=== PATIENT | male | born 1955 | race Caucasian/White ===

== ENCOUNTER 2022-05-28 17:19 | Inpatient (IN) ==
--- NOTE | 2022-05-28 20:15 | EKG ---
Test Reason : per provider's orders Blood Pressure : */* mmHG Vent. Rate : 95 BPM Atrial Rate : 95 BPM P-R Int : 126 ms QRS Dur : 84 ms QT Int : 354 ms P-R-T Axes : 48 -46 58 degrees QTc Int : 444 ms Normal sinus rhythm Left anterior fascicular block Septal infarct , age undetermined Abnormal ECG No previous ECGs available Confirmed by Devyn Perry ([id number]) on 05/29/2022 11:18:56 AM Referred By: Confirmed By: Devyn Perry
[2022-05-28 20:32] LABS: BASOPHILS % (AUTO) 0.3 % (0.2-1.0); EOSINOPHILS % (AUTO) 0.1 % (0.9-2.9); HEMATOCRIT 31.3 % (42.0-54.0); HEMOGLOBIN 10.2 g/dL (13.5-18.0); LYMPHOCYTES % (AUTO) 5.9 % (21.0-51.0); MEAN CORPUSCULAR HEMOGLOBIN 24.8 pg (27.0-34.0); MEAN CORPUSCULAR HGB CONC 32.6 g/dL (33.0-35.0); MEAN CORPUSCULAR VOLUME 75.9 fL (80.0-100.0); MEAN PLATELET VOLUME 7.8 fL (7.4-11.0); MONOCYTES # (AUTO) 0.9 x10^3/uL (0.3-0.8); MONOCYTES % (AUTO) 5.4 % (0.0-13.0); NEUTROPHILS # (AUTO) 14.7 x10^3/uL (2.2-4.8); NEUTROPHILS % (AUTO) 88.3 % (42.0-75.0); RED BLOOD COUNT 4.12 X10^6/uL (4.7-6.0); RED CELL DISTRIBUTION WIDTH 16.3 % (11.6-16.5); WHITE BLOOD COUNT 16.6 X10^3/uL (3.6-10.0)
[2022-05-28 20:41] LABS: ALANINE AMINOTRANSFERASE 158 Units/L (12-78); ALBUMIN 1.8 g/dL (3.4-5.0); ALKALINE PHOSPHATASE 368 Units/L (46-116); ASPARTATE AMINO TRANSFERASE 96 Units/L (15-37); BLOOD UREA NITROGEN 18 mg/dL (7-18); CARBON DIOXIDE 31.1 mmol/L (21-32); CHLORIDE 98 mmol/L (98-107); COR CA(FOR HYPOALB) 10.8 mg/dL (8.5-10.1); COR NA(FOR HYPERGLY) 139 mmol/L (136-145); CREATININE 0.57 mg/dL (0.70-1.30); SODIUM 136 mmol/L (136-145); eGFR NON BLACK RACES > 60 (>60)
[2022-05-28] MEDS: LR 1,000 ML IV 1,000 ML IV SCH (20:48)
[2022-05-28] MEDS ORDERED: DILAUDID INJ IVP PRN (22:33)
--- NOTE | 2022-05-28 23:02 | DR.H&P ---
H&P History & Physical for Day of: H&P Date: 05/28/22 Chief Complaint Chief Complaint: 66 yo male with history of multiple CVAs , now is aphasic and severely contracted with gangrenous changes of the right leg all below the knee. Recommended for above knee amputation recently and he declined but he has changed his mind. Patietn fed via a PEG tube and has diabetes and hypertension. Allergies Allergies Allergy/AdvReac Type Severity Reaction Status Date / Time MS Morphine [Morphine] Allergy Unknown Verified 05/28/22 20:06 History of Present Illness History of Present Illness: as above . Admitted for amputation of the right leg above knee. Will begin IV antibiotics. Past Medical History Past Medical History: CVA, Diabetes and Hypertension Additional Medical History: Depression, Past Surgical History Surgical History: Ortho Surgery and Other Additional Surgical History: PEG tube placement Social History Does patient currently use any type of tobacco product: No Have you used tobacco products in the last 12 months: No Type of Tobacco Use: None Does any household member use tobacco: Yes Alcohol Use: None Drug Use: None Medications Home Medications: MS Morphine [Morphine] Allergy (Unknown, Verified 05/28/22 20:06) CONTINUE taking the following medications collagenase clostridium histo. 250 unit/gram topical ointment (Santyl) 1 applic topical QDAY 05/28/22 [History] levofloxacin 500 mg tablet 1 tab PO QDAY 05/28/22 [History] oxycodone-acetaminophen 5 mg-325 mg tablet 1 tab PO QID PRN 05/28/22 [History] potassium chloride 20 mEq/15 mL oral liquid 2.5 ml PO BID 05/28/22 [History] rosuvastatin 20 mg tablet 1 tab PO QPM 05/28/22 [History] sertraline 50 mg tablet 1 tab PO QDAY 05/28/22 [History] Labs Result Diagrams: 05/28/22 20:18 05/28/22 20:18 Labs: Laboratory WBC 16.6 X10^3/uL (3.6-10.0) H 05/28/22 20:18 RBC 4.12 X10^6/uL (4.7-6.0) L 05/28/22 20:18 Hgb 10.2 g/dL (13.5-18.0) L 05/28/22 20:18 Hct 31.3 % (42.0-54.0) L 05/28/22 20:18 MCV 75.9 fL (80.0-100.0) L 05/28/22 20:18 MCH 24.8 pg (27.0-34.0) L 05/28/22 20:18 MCHC 32.6 g/dL (33.0-35.0) L 05/28/22 20:18 RDW 16.3 % (11.6-16.5) 05/28/22 20:18 Plt Count 604 X10^3/uL (150.0-450.0) H 05/28/22 20:18 MPV 7.8 fL (7.4-11.0) 05/28/22 20:18 Neut % (Auto) 88.3 % (42.0-75.0) H 05/28/22 20:18 Lymph % (Auto) 5.9 % (21.0-51.0) L 05/28/22 20:18 [place] % (Auto) 5.4 % (0.0-13.0) 05/28/22 20:18 Eos % (Auto) 0.1 % (0.9-2.9) L 05/28/22 20:18 Baso % (Auto) 0.3 % (0.2-1.0) 05/28/22 20:18 Neut # (Auto) 14.7 x10^3/uL (2.2-4.8) H 05/28/22 20:18 Lymph # (Auto) 1.0 X10^3/uL (1.3-2.9) L 05/28/22 20:18 [place] # (Auto) 0.9 x10^3/uL (0.3-0.8) H 05/28/22 20:18 Eos # (Auto) 0.0 x10^3/uL (0.0-0.2) 05/28/22 20:18 Baso # (Auto) 0.0 X10^3/uL (0.0-0.1) 05/28/22 20:18 Absolute Nucleated RBC 0.0 /100WBC 05/28/22 20:18 Sodium 136 mmol/L (136-145) 05/28/22 20:18 Corrected Sodium 139 mmol/L (136-145) 05/28/22 20:18 Potassium 4.5 mmol/L (3.5-5.1) 05/28/22 20:18 Chloride 98 mmol/L (98-107) 05/28/22 20:18 Carbon Dioxide 31.1 mmol/L (21-32) 05/28/22 20:18 BUN 18 mg/dL (7-18) 05/28/22 20:18 Creatinine 0.57 mg/dL (0.70-1.30) L 05/28/22 20:18 Est GFR (MDRD) Af Amer > 60 (>60) 05/28/22 20:18 Est GFR (MDRD) Non-Af > 60 (>60) 05/28/22 20:18 Glucose 232 mg/dL (65-99) H 05/28/22 20:18 Calcium 9.0 mg/dL (8.5-10.1) 05/28/22 20:18 Corrected Calcium 10.8 mg/dL (8.5-10.1) H 05/28/22 20:18 Total Bilirubin 0.30 mg/dL (0.2-1.0) 05/28/22 20:18 AST 96 Units/L (15-37) H 05/28/22 20:18 ALT 158 Units/L (12-78) H 05/28/22 20:18 Alkaline Phosphatase 368 Units/L (46-116) H 05/28/22 20:18 Total Protein 8.0 g/dL (6.4-8.2) 05/28/22 20:18 Albumin 1.8 g/dL (3.4-5.0) L 05/28/22 20:18 Globulin 6.2 g/dL (2.5-4.5) H 05/28/22 20:18 Albumin/Globulin Ratio 0.3 Ratio (1.1-2.1) L 05/28/22 20:18 Review of Systems Constitutional: See HPI Eyes: No Symptoms Reported ENT: No Symptoms Reported Respiratory: No Symptoms Reported Cardiovascular: No Symptoms Reported Gastrointestinal: No Symptoms Reported Genitourinary: No Symptoms Reported Musculoskeletal: See HPI Skin: See HPI Neurological: See HPI Physical Exam Vital Signs: Temperature 98.5 F Pulse Rate 93 Respiratory Rate 26 Blood Pressure 145/68 Oriented: Not Oriented and Unable to test Eyes: Normal Ear: Normal Nose: Other (obvious surgery of the nose ( skin)) Throat: Normal Respiratory: Diminished Throughout and Rhonchi Throughout Cardiovascular: Tachycardia and Other (palpable femoral pulses and absdent distal pulses both legs.) : Normal Auscultation: Bowel Sounds: Normal Palpation: Normal Tenderness: Normal Skin: Other (gangrenous right heel and multiple areas gangrenous changes right leg below knee.) Musculoskeletal: Right (severe contraction) Psychiatric: Depression Mood Description: Flat Affect: Depressed Speech Pattern: Aphasic Assessment/Plan (1) Ischemia of right lower extremity: Status: Acute Plan: IV antibiotics and plan right above knee amputation . (2) History of CVA (cerebrovascular accident): Status: Acute Plan: Continue PEG tube feedings (3) Diabetes: Status: Acute Plan: sliding scale insulin (4) Hypertension: Status: Acute Plan: usual home medications (5) Peripheral vascular disease: Status: Acute Plan: as above
[2022-05-29] MEDS: ZOSYN VIAL 3.375 GRAMS 3.375 G in NS 100 ML IV 100 ML IV SCH ×4 (00:10→21:13)
--- NOTE | 2022-05-29 01:53 | RAD ---
HISTORYShortness of breath relevant Clinical InformationSTUDYCHEST, 1 VIEWCOMPARISONNoneFINDINGSMidline trachea. Interstitial coarsening. No pneumothorax or confluent airspace opacity. Heart size within normal limits for portable technique.IMPRESSIONInterstitial lung changes. No acute cardiopulmonary process.Electronically signed by: Darien العراقي (May 29, 2022 01:52:14)
--- NOTE | 2022-05-29 06:54 | RAD ---
HISTORYPreop right heel ulcerSTUDYChest AP [id number] May 2022FINDINGSHeart size is normal. Jlilian are normal. Lungs are free of acute alveolar infiltrates. Minimal interstitial lung changes are present, stable there is a small focus of subsegmental atelectasis in the retrocardiac area of the left lower lobe. No pleural effusions are identified. Bony thorax is unremarkable.IMPRESSIONNo acute infiltratesElectronically signed by: JESSENIA MONTANEZ (May 29, 2022 06:54:04)
[2022-05-29] MEDS ORDERED: TYLENOL 325 MG TAB PO PRN (08:10)
[2022-05-29] MEDS: LOVENOX INJ 40 MG SYR SC SCH ×2 (08:44→10:28)
[2022-05-29] MEDS: ZOLOFT PO SCH (08:47)
[2022-05-29] MEDS: PERCOCET TAB 5/325 MG PO PRN ×2 (08:47→18:20)
[2022-05-29] MEDS: K-DUR TAB 20 MEQ PO SCH ×2 (08:48→20:02)
[2022-05-29] MEDS: NORVASC TAB 10 MG PO SCH (08:48)
[2022-05-29] MEDS: LR 1,000 ML IV 1,000 ML IV SCH ×3 (10:27→22:37)
[2022-05-29 11:28] LABS: BILIRUBIN,URINE NEGATIVE (NEGATIVE); BLOOD/HEMOGLOBIN,URINE NEGATIVE (NEGATIVE); GLUCOSE, URINE 3+ (NEGATIVE); KETONES,URINE NEGATIVE (NEGATIVE); LEUKOCYTE ESTERASE ,URINE NEGATIVE (NEGATIVE); NITRITES,URINE NEGATIVE (NEGATIVE); PROTEIN,URINE 2+ (NEGATIVE); UROBILINOGEN,URINE 1+ (NORMAL)
[2022-05-29 11:39] LABS: APPEARANCE,URINE CLEAR (CLEAR); BACTERIA,URINE TRACE /HPF (NEGATIVE); COLOR,URINE YELLOW (YELLOW); RBC,URINE 0-2 /HPF (0-3); SQUAMOUS EPITHELIAL CELL,UR RARE /HPF (NEGATIVE)
[2022-05-29 15:43] VITALS: BMI 17.9
[2022-05-29] MEDS: CRESTOR TAB 10 MG PO SCH (20:02)
--- NOTE | 2022-05-29 22:42 | NOTE.SOAP ---
Soap Note Note for Day of Date of Exam: 05/29/22 Subjective Data Subjective Data: HD #1 Patient stable, started tube feedings. Prepared for surgery tomorrow. Objective Data Temperature: 101.8 F Pulse Rate: 80 Respiratory Rate: 25 Blood Pressure: 141/62 O2 Sat by Pulse Oximetry: 96 Objective Data: Febrile this AM probably due to his leg. CXR clear Assessment Assessment: Severely ischemic contracted right leg with cellulitis Plan Plan: right above knee amputation in AM. This patient has high surgical risk. We are trying to make him more comfortable.
[2022-05-30] MEDS: ZOSYN VIAL 3.375 GRAMS 3.375 G in NS 100 ML IV 100 ML IV SCH ×3 (05:15→21:56)
[2022-05-30] MEDS: LR 1,000 ML IV 1,000 ML IV SCH ×3 (06:08→22:20)
[2022-05-30] MEDS: LOVENOX INJ 40 MG SYR SC SCH (10:34)
[2022-05-30] MEDS: ZOLOFT PO SCH (10:35)
[2022-05-30] MEDS: NORVASC TAB 10 MG PO SCH (10:35)
[2022-05-30] MEDS: K-DUR TAB 20 MEQ PO SCH ×2 (10:35→21:56)
[2022-05-30] MEDS ORDERED: DILAUDID INJ IVP ONE (12:05)
[2022-05-30] MEDS ORDERED: TYLENOL SUPP 650 MG PR ONE (12:30)
[2022-05-30] MEDS ORDERED: DIPRIVAN VIAL 20 ML ONE (12:54)
[2022-05-30] MEDS ORDERED: MARCAINE SPINAL ONE (12:54)
[2022-05-30] MEDS ORDERED: VERSED ONE (12:54)
[2022-05-30] MEDS ORDERED: LR 1,000 ML IV 1,000 ML IV ONE (13:16)
[2022-05-30] MEDS ORDERED: NS 100 ML IV 100 ML ONE (13:21)
[2022-05-30] MEDS ORDERED: ANCEF VIAL 1 GRAM ONE (13:21)
[2022-05-30] MEDS ORDERED: KETAMINE HCL ONE (13:55)
[2022-05-30] MEDS ORDERED: EPHEDRINE SULFATE INJ ONE (14:18)
[2022-05-30] MEDS ORDERED: BENADRYL INJ 50 MG VIAL IVP PRN (15:04)
[2022-05-30] MEDS ORDERED: REGLAN INJ 10 MG VIAL IVP PRN (15:04)
[2022-05-30] MEDS ORDERED: DILAUDID INJ IVP PRN (15:04)
[2022-05-30] MEDS ORDERED: ZOFRAN INJ 4 MG VIAL IVP PRN (15:04)
[2022-05-30] MEDS ORDERED: BARHEMSYS INJ IVP PRN (15:04)
[2022-05-30] MEDS ORDERED: NS 500 ML IV 500 ML IV ONE (15:19)
--- NOTE | 2022-05-30 16:40 | OR.IMMED ---
IMMEDIATE POST-OP NOTE Immediate Post-Op Note Pre-Op Diagnosis: gangrenous, infected right leg Post-Op Diagnosis: same Procedure: right above knee amputation Description of Procedure: see operative summary Surgeon/Rental Agent: Jaquelin Findings: as above Specimens Removed: right leg above kn ee Estimated Blood Loss: 25 cc Complications: none Progress Notes: To ICU, resume diet , pain control and IV antibiotics
[2022-05-30] MEDS: PERCOCET TAB 5/325 MG PO PRN (18:29)
--- NOTE | 2022-05-30 20:36 | DR.OPNOTE ---
OP NOTE Pre-Op Diagnosis: Severe ischemia rightn leg, open wounds, cellulitis, CVA non- ambulatory Post-Op Diagnosis: same Procedure Date Date Of Procedure: 05/30/22 Procedure: PROCEDURE: RIGHT ABOVE KNEE AMPUTATION NARRATIVE: The patient was taken to the operative suite and a spinal anesthetic placed . The entire right leg was prepped and draped in sterile fashion. Time out for the procedure obtained . Fish mouth incision was made one hands breadth above the superior edge of the patella with a 15 knife blade extending through the subcuticular space tissue and muscles of anterior thigh with electrocautery. Dissection carried out in the medial compartment and the superficial femoral artery and superficial femoral vein divided between clamps and tied with 2-0 silk suture ligatures . The periosteum of the femur elevated high as possible and the femur divided with an oscillating saw. Amputation knife used to complete the amputation. Specimen passed from the table .All bleeding vessels clamped and tied with 2-0 silk suture ligatures . The wound irrigated and other hemostasis obtained with electrocautery. The two flaps were approximated , closing muscle layers with interrupted 0 Vicryl sutures and the skin closed with skin latanya. Dressing applied . Taken to the PACU in good condition. Type of Anesthesia: Spinal Anesthetic Findings: as above Specimen/Pathology: right leg above knee Type of Fluids Used:: Lactated Ringers Total Amount of Fluid Infused:: 800 cc Urine output: 500 cc EBL: 25 cc Complications:: none Needle/Sponge Count:: correct Disposition/Condition: Pt. tolerated procedure without difficulty. Taken to PACU in stable condition.
[2022-05-30] MEDS: CRESTOR TAB 10 MG PO SCH (21:56)
[2022-05-31 05:17] LABS: BASOPHILS % (AUTO) 0.2 % (0.2-1.0); HEMATOCRIT 25.2 % (42.0-54.0); LYMPHOCYTES # (AUTO) 1.3 X10^3/uL (1.3-2.9); LYMPHOCYTES % (AUTO) 9.6 % (21.0-51.0); MEAN CORPUSCULAR HEMOGLOBIN 24.1 pg (27.0-34.0); MEAN CORPUSCULAR HGB CONC 32.1 g/dL (33.0-35.0); MEAN CORPUSCULAR VOLUME 75.1 fL (80.0-100.0); MEAN PLATELET VOLUME 7.6 fL (7.4-11.0); MONOCYTES # (AUTO) 0.8 x10^3/uL (0.3-0.8); MONOCYTES % (AUTO) 5.8 % (0.0-13.0); NEUTROPHILS # (AUTO) 11.8 x10^3/uL (2.2-4.8); NEUTROPHILS % (AUTO) 84.4 % (42.0-75.0); RED BLOOD COUNT 3.35 X10^6/uL (4.7-6.0); RED CELL DISTRIBUTION WIDTH 16.3 % (11.6-16.5)
[2022-05-31 05:21] LABS: BLOOD UREA NITROGEN 10 mg/dL (7-18); CALCIUM 8.6 mg/dL (8.5-10.1); CARBON DIOXIDE 28.3 mmol/L (21-32); CHLORIDE 102 mmol/L (98-107); COR NA(FOR HYPERGLY) 144 mmol/L (136-145); CREATININE 0.46 mg/dL (0.70-1.30); SODIUM 140 mmol/L (136-145); eGFR NON BLACK RACES > 60 (>60)
[2022-05-31] MEDS: ZOSYN VIAL 3.375 GRAMS 3.375 G in NS 100 ML IV 100 ML IV SCH ×3 (05:22→22:08)
[2022-05-31 05:25] LABS: HEMOGLOBIN 8.1 g/dL (13.5-18.0)
[2022-05-31] MEDS: ZOLOFT PO SCH (09:34)
[2022-05-31] MEDS: LR 1,000 ML IV 1,000 ML IV SCH ×2 (09:34→14:53)
[2022-05-31] MEDS: K-DUR TAB 20 MEQ PO SCH ×2 (09:35→22:07)
[2022-05-31] MEDS: NORVASC TAB 10 MG PO SCH (09:36)
[2022-05-31] MEDS: PERCOCET TAB 5/325 MG PO PRN ×3 (09:36→22:30)
[2022-05-31] MEDS: MAGNESIUM SULFATE 1 GRAM/100 mL PREMIX 1 G/100 ML BAG IV SCH ×2 (10:40→11:40)
[2022-05-31] MEDS ORDERED: POTASSIUM CHLORIDE IV NR ×2 (11:00)
[2022-05-31] MEDS ORDERED: NS IV NR ×2 (11:00)
[2022-05-31] MEDS: SANTYL EXT SCH (11:06)
[2022-05-31] MEDS: NovoLIN R (or HumuLIN R) SC PRN ×3 (11:14→22:22)
[2022-05-31] MEDS: CRESTOR TAB 10 MG PO SCH (22:07)
[2022-06-01] MEDS: LR 1,000 ML IV 1,000 ML IV SCH ×3 (03:32→21:26)
[2022-06-01] MEDS: ZOSYN VIAL 3.375 GRAMS 3.375 G in NS 100 ML IV 100 ML IV SCH ×3 (05:44→21:17)
[2022-06-01] MEDS: PERCOCET TAB 5/325 MG PO PRN ×2 (08:25→17:23)
[2022-06-01] MEDS: SANTYL EXT SCH (08:25)
[2022-06-01] MEDS: NORVASC TAB 10 MG PO SCH (08:26)
[2022-06-01] MEDS: ZOLOFT PO SCH (08:26)
[2022-06-01] MEDS: K-DUR TAB 20 MEQ PO SCH ×2 (08:26→21:17)
[2022-06-01] MEDS: CRESTOR TAB 10 MG PO SCH (21:17)
[2022-06-01] MEDS: NovoLIN R (or HumuLIN R) SC PRN (21:46)
[2022-06-02] MEDS: PERCOCET TAB 5/325 MG PO PRN ×3 (01:05→21:20)
--- NOTE | 2022-06-02 01:28 | NOTE.SOAP ---
Soap Note Note for Day of Date of Exam: 06/01/22 Subjective Data Subjective Data: POD #2 after right above knee amputation Objective Data Temperature: 98.8 F Pulse Rate: 73 Respiratory Rate: 19 Blood Pressure: 120/57 O2 Sat by Pulse Oximetry: 95 Objective Data: Resting comfortably. Dressing intact right AKA stump and no bleeding. Assessment Assessment: ischemic right leg s/p right above knee amputation. Plan Plan: Labs in AM. Will plan discharge soon
[2022-06-02] MEDS: LR 1,000 ML IV 1,000 ML IV SCH ×2 (05:21→18:17)
[2022-06-02] MEDS: ZOSYN VIAL 3.375 GRAMS 3.375 G in NS 100 ML IV 100 ML IV SCH ×3 (05:21→21:21)
[2022-06-02] MEDS: NovoLIN R (or HumuLIN R) SC PRN (05:54)
[2022-06-02] MEDS: K-DUR TAB 20 MEQ PO SCH ×2 (10:06→21:20)
[2022-06-02] MEDS: NORVASC TAB 10 MG PO SCH (10:07)
[2022-06-02] MEDS: ZOLOFT PO SCH (10:07)
--- NOTE | 2022-06-02 14:53 | NOTE.SOAP ---
Soap Note Note for Day of Date of Exam: 06/02/22 Subjective Data Subjective Data: POD # 3 after right above knee amputation. Doing well. tolerating tube feedings and IV antibiotics. Objective Data Temperature: 97.6 F Pulse Rate: 72 Respiratory Rate: 20 Blood Pressure: 130/67 O2 Sat by Pulse Oximetry: 96 Objective Data: Right leg dressing without drainage. Assessment Assessment: s/p right above knee amputation. Plan Plan: Awaiting hospice consult . Ready for discharge.
[2022-06-02] MEDS: CRESTOR TAB 10 MG PO SCH (21:19)
[2022-06-03 05:16] LABS: BLOOD UREA NITROGEN 8 mg/dL (7-18); CALCIUM 8.6 mg/dL (8.5-10.1); CARBON DIOXIDE 30.7 mmol/L (21-32); CHLORIDE 99 mmol/L (98-107); COR NA(FOR HYPERGLY) 138 mmol/L (136-145); SODIUM 137 mmol/L (136-145); eGFR NON BLACK RACES > 60 (>60)
[2022-06-03 05:25] LABS: BASOPHILS # (AUTO) 0.1 X10^3/uL (0.0-0.1); BASOPHILS % (AUTO) 0.6 % (0.2-1.0); EOSINOPHILS # (AUTO) 0.3 x10^3/uL (0.0-0.2); EOSINOPHILS % (AUTO) 2.2 % (0.9-2.9); HEMATOCRIT 26.2 % (42.0-54.0); HEMOGLOBIN 8.5 g/dL (13.5-18.0); LYMPHOCYTES # (AUTO) 2.5 X10^3/uL (1.3-2.9); LYMPHOCYTES % (AUTO) 21.6 % (21.0-51.0); MEAN CORPUSCULAR HEMOGLOBIN 24.1 pg (27.0-34.0); MEAN CORPUSCULAR HGB CONC 32.4 g/dL (33.0-35.0); MEAN CORPUSCULAR VOLUME 74.5 fL (80.0-100.0); MEAN PLATELET VOLUME 7.7 fL (7.4-11.0); MONOCYTES # (AUTO) 0.7 x10^3/uL (0.3-0.8); NEUTROPHILS % (AUTO) 69.6 % (42.0-75.0); RED BLOOD COUNT 3.52 X10^6/uL (4.7-6.0); RED CELL DISTRIBUTION WIDTH 16.3 % (11.6-16.5); WHITE BLOOD COUNT 11.5 X10^3/uL (3.6-10.0)
[2022-06-03] MEDS: ZOSYN VIAL 3.375 GRAMS 3.375 G in NS 100 ML IV 100 ML IV SCH (05:36)
[2022-06-03 05:40] LABS: HYPOCHROMASIA 1+; MICROCYTOSIS SLIGHT; PLATELET MORPHOLOGY COMMENT NORMAL (NORMAL)
[2022-06-03] MEDS: LR 1,000 ML IV 1,000 ML IV SCH (06:12)
[2022-06-03] MEDS: NORVASC TAB 10 MG PO SCH (08:44)
[2022-06-03] MEDS: ZOLOFT PO SCH (08:44)
[2022-06-03] MEDS: K-DUR TAB 20 MEQ PO SCH (08:44)
[2022-06-03 14:26] VITALS: BP 139/65
--- NOTE | 2022-06-05 11:31 | W.DIS.FURT ---
Summary of Discharge Discharge Summary of Date Date of Exam: 06/03/22 Admission Date Date of Admission: 05/29/22 Admission Diagnosis Hospital Course: 66 year old male with significant history of peripheral vascular disease and multiple strokes now completely aphasic but is alert with severe wounds of the right leg which to this point he had refused amputation and they continue to worsen and he is non ambulatory with contractions of both lowre extremities. He and his family changed their minds and he was admitted 05/29/2022 and had right above knee amputation on 05/30/2022. He has remained stable. He was treated empirically wt IV antibiotics. He will be discharged home today with home health and will follow up with me in the office in one week. Vital Signs: Vital Signs (72 hours) 06/02/22 14:52 06/02/22 01:27 05/31/22 14:54 Temperature 97.6 F 98.8 F Pulse Rate 72 73 Respiratory Rate 20 19 24 Blood Pressure 130/67 120/57 O2 Sat by Pulse Oximetry 96 95 Oxygen Delivery Method Oxygen Flow Rate FIO2% 05/31/22 12:00 05/31/22 12:00 05/31/22 13:00 Temperature 98.9 F Pulse Rate 72 Respiratory Rate 19 Blood Pressure 124/59 127/60 O2 Sat by Pulse Oximetry 97 Oxygen Delivery Method Oxygen Flow Rate FIO2% 05/31/22 13:00 05/31/22 14:00 05/31/22 14:00 Temperature Pulse Rate 74 76 Respiratory Rate 20 21 Blood Pressure 112/57 O2 Sat by Pulse Oximetry 97 95 Oxygen Delivery Method Oxygen Flow Rate FIO2% 05/31/22 15:00 05/31/22 15:00 05/31/22 16:00 Temperature Pulse Rate 73 Respiratory Rate 18 Blood Pressure 109/53 120/57 O2 Sat by Pulse Oximetry 100 Oxygen Delivery Method Oxygen Flow Rate FIO2% 05/31/22 16:00 05/31/22 17:00 05/31/22 17:00 Temperature 97.7 F Pulse Rate 74 73 Respiratory Rate 18 18 Blood Pressure 105/54 O2 Sat by Pulse Oximetry 100 98 Oxygen Delivery Method Oxygen Flow Rate FIO2% 05/31/22 15:54 05/31/22 18:00 05/31/22 18:00 Temperature Pulse Rate 69 Respiratory Rate 17 18 Blood Pressure 109/58 O2 Sat by Pulse Oximetry 98 Oxygen Delivery Method Oxygen Flow Rate FIO2% 05/31/22 20:00 05/31/22 22:30 05/31/22 19:00 Temperature Pulse Rate Respiratory Rate 17 Blood Pressure O2 Sat by Pulse Oximetry Oxygen Delivery Method Nasal Cannula Room Air Oxygen Flow Rate 2 FIO2% 28 05/31/22 19:00 05/31/22 20:00 05/31/22 21:00 Temperature 99.5 F Pulse Rate 71 75 71 Respiratory Rate 17 21 21 Blood Pressure 113/56 105/50 104/53 O2 Sat by Pulse Oximetry 98 97 98 Oxygen Delivery Method Nasal Cannula Nasal Cannula Nasal Cannula Oxygen Flow Rate 2 2 2 FIO2% 05/31/22 22:00 05/31/22 23:00 06/01/22 00:00 Temperature 99.1 F Pulse Rate 78 76 74 Respiratory Rate 22 22 20 Blood Pressure 107/57 110/54 98/51 O2 Sat by Pulse Oximetry 97 97 98 Oxygen Delivery Method Nasal Cannula Nasal Cannula Nasal Cannula Oxygen Flow Rate 2 2 2 FIO2% 06/01/22 01:00 06/01/22 02:00 06/01/22 03:00 Temperature Pulse Rate 71 70 62 Respiratory Rate 21 15 16 Blood Pressure 99/52 105/51 95/53 O2 Sat by Pulse Oximetry 98 100 99 Oxygen Delivery Method Nasal Cannula Nasal Cannula Nasal Cannula Oxygen Flow Rate 2 2 2 FIO2% 06/01/22 04:00 06/01/22 05:00 06/01/22 06:00 Temperature 99.3 F Pulse Rate 64 66 55 L Respiratory Rate 15 16 14 Blood Pressure 100/52 113/53 114/57 O2 Sat by Pulse Oximetry 100 100 100 Oxygen Delivery Method Nasal Cannula Nasal Cannula Nasal Cannula Oxygen Flow Rate 2 2 2 FIO2% 06/01/22 07:00 06/01/22 08:25 06/01/22 07:00 Temperature Pulse Rate 61 Respiratory Rate 15 19 Blood Pressure 111/54 O2 Sat by Pulse Oximetry 99 Oxygen Delivery Method Nasal Cannula Room Air Oxygen Flow Rate 2 FIO2% 06/01/22 08:00 06/01/22 09:00 06/01/22 09:24 Temperature 98.4 F Pulse Rate 62 60 Respiratory Rate 15 15 15 Blood Pressure 109/55 111/55 O2 Sat by Pulse Oximetry 100 100 Oxygen Delivery Method Nasal Cannula Nasal Cannula Oxygen Flow Rate 2 2 FIO2% 06/01/22 10:00 06/01/22 11:00 06/01/22 12:00 Temperature 98.1 F Pulse Rate 70 72 67 Respiratory Rate 15 15 21 Blood Pressure 117/54 125/60 124/59 O2 Sat by Pulse Oximetry 97 97 95 Oxygen Delivery Method Nasal Cannula Nasal Cannula Nasal Cannula Oxygen Flow Rate 2 2 2 FIO2% 06/01/22 13:00 06/01/22 14:00 06/01/22 15:00 Temperature Pulse Rate 71 71 77 Respiratory Rate 16 17 20 Blood Pressure 133/62 123/58 122/60 O2 Sat by Pulse Oximetry 97 98 95 Oxygen Delivery Method Nasal Cannula Nasal Cannula Nasal Cannula Oxygen Flow Rate 2 2 2 FIO2% 06/01/22 17:23 06/01/22 16:00 06/01/22 17:00 Temperature 98.5 F Pulse Rate 67 68 Respiratory Rate 21 19 20 Blood Pressure 122/59 134/60 O2 Sat by Pulse Oximetry 96 98 Oxygen Delivery Method Nasal Cannula Nasal Cannula Oxygen Flow Rate 2 2 FIO2% 06/01/22 18:00 06/01/22 18:23 06/01/22 19:00 Temperature Pulse Rate 74 71 Respiratory Rate 17 19 17 Blood Pressure 127/60 117/59 O2 Sat by Pulse Oximetry 96 96 Oxygen Delivery Method Nasal Cannula Nasal Cannula Oxygen Flow Rate 2 2 FIO2% 06/01/22 19:00 06/01/22 20:00 06/01/22 21:00 Temperature 98.8 F Pulse Rate 69 67 Respiratory Rate 14 17 Blood Pressure 122/58 121/57 O2 Sat by Pulse Oximetry 98 95 Oxygen Delivery Method Nasal Cannula Nasal Cannula Nasal Cannula Oxygen Flow Rate 2 2 FIO2% 06/01/22 22:00 06/01/22 23:00 06/02/22 00:00 Temperature 97.9 F Pulse Rate 69 73 72 Respiratory Rate 19 19 20 Blood Pressure 142/60 120/57 131/52 O2 Sat by Pulse Oximetry 96 95 98 Oxygen Delivery Method Nasal Cannula Nasal Cannula Nasal Cannula Oxygen Flow Rate 2 2 2 FIO2% 06/02/22 01:00 06/02/22 02:00 06/02/22 03:00 Temperature Pulse Rate 72 20 L 69 Respiratory Rate 20 73 H 19 Blood Pressure 124/60 120/57 114/56 O2 Sat by Pulse Oximetry 96 94 L 95 Oxygen Delivery Method Nasal Cannula Nasal Cannula Nasal Cannula Oxygen Flow Rate 2 2 2 FIO2% 06/02/22 04:00 06/02/22 05:00 06/02/22 06:00 Temperature 97.6 F Pulse Rate 61 73 74 Respiratory Rate 15 16 17 Blood Pressure 107/56 125/61 133/62 O2 Sat by Pulse Oximetry 98 96 98 Oxygen Delivery Method Nasal Cannula Nasal Cannula Oxygen Flow Rate 2 2 FIO2% 06/02/22 01:05 06/02/22 02:05 06/02/22 08:41 Temperature Pulse Rate Respiratory Rate 19 19 Blood Pressure O2 Sat by Pulse Oximetry Oxygen Delivery Method Nasal Cannula Oxygen Flow Rate 2 FIO2% 28 06/02/22 07:00 06/01/22 11:00 06/01/22 12:00 Temperature Pulse Rate 70 Respiratory Rate 16 Blood Pressure 124/59 O2 Sat by Pulse Oximetry 97 Oxygen Delivery Method Nasal Cannula Oxygen Flow Rate FIO2% 06/01/22 12:00 06/01/22 13:00 06/01/22 13:00 Temperature Pulse Rate 67 72 Respiratory Rate 15 19 Blood Pressure 133/62 O2 Sat by Pulse Oximetry 96 97 Oxygen Delivery Method Oxygen Flow Rate FIO2% 06/01/22 14:00 06/01/22 14:00 06/01/22 15:00 Temperature Pulse Rate 71 Respiratory Rate 17 Blood Pressure 123/58 122/60 O2 Sat by Pulse Oximetry 98 Oxygen Delivery Method Oxygen Flow Rate FIO2% 06/01/22 15:00 06/01/22 16:00 06/01/22 16:00 Temperature Pulse Rate 74 67 Respiratory Rate 20 19 Blood Pressure 122/59 O2 Sat by Pulse Oximetry 95 96 Oxygen Delivery Method Oxygen Flow Rate FIO2% 06/01/22 17:00 06/01/22 17:13 06/01/22 17:13 Temperature Pulse Rate 71 68 Respiratory Rate 21 20 Blood Pressure 134/60 O2 Sat by Pulse Oximetry 97 98 Oxygen Delivery Method Oxygen Flow Rate FIO2% 06/01/22 18:00 06/01/22 18:00 06/01/22 19:00 Temperature Pulse Rate 74 Respiratory Rate 17 Blood Pressure 127/60 117/59 O2 Sat by Pulse Oximetry 96 Oxygen Delivery Method Oxygen Flow Rate FIO2% 06/01/22 19:00 06/01/22 20:00 06/01/22 20:00 Temperature Pulse Rate 71 69 Respiratory Rate 17 15 Blood Pressure 122/58 O2 Sat by Pulse Oximetry 96 98 Oxygen Delivery Method Oxygen Flow Rate FIO2% 06/01/22 21:00 06/01/22 21:00 06/01/22 22:00 Temperature Pulse Rate 67 68 Respiratory Rate 18 21 Blood Pressure 121/57 O2 Sat by Pulse Oximetry 95 97 Oxygen Delivery Method Oxygen Flow Rate FIO2% 06/01/22 22:01 06/01/22 22:01 06/01/22 23:00 Temperature Pulse Rate 69 Respiratory Rate 19 Blood Pressure 142/60 120/57 O2 Sat by Pulse Oximetry 96 Oxygen Delivery Method Oxygen Flow Rate FIO2% 06/01/22 23:00 06/02/22 00:00 06/02/22 00:00 Temperature Pulse Rate 72 72 Respiratory Rate 19 20 Blood Pressure 131/62 O2 Sat by Pulse Oximetry 95 98 Oxygen Delivery Method Oxygen Flow Rate FIO2% 06/02/22 01:00 06/02/22 01:00 06/02/22 02:00 Temperature Pulse Rate 72 Respiratory Rate 20 Blood Pressure 124/60 120/57 O2 Sat by Pulse Oximetry 96 Oxygen Delivery Method Oxygen Flow Rate FIO2% 06/02/22 02:00 06/02/22 03:00 06/02/22 03:00 Temperature Pulse Rate 73 69 Respiratory Rate 20 19 Blood Pressure 114/56 O2 Sat by Pulse Oximetry 94 L 95 Oxygen Delivery Method Oxygen Flow Rate FIO2% 06/02/22 04:00 06/02/22 04:00 06/02/22 05:00 Temperature Pulse Rate 66 68 Respiratory Rate 17 17 Blood Pressure 107/56 O2 Sat by Pulse Oximetry 97 96 Oxygen Delivery Method Oxygen Flow Rate FIO2% 06/02/22 05:01 06/02/22 05:01 06/02/22 06:00 Temperature Pulse Rate 69 Respiratory Rate 24 Blood Pressure 125/61 133/62 O2 Sat by Pulse Oximetry 98 Oxygen Delivery Method Oxygen Flow Rate FIO2% 06/02/22 06:00 06/02/22 07:00 06/02/22 07:00 Temperature Pulse Rate 74 71 Respiratory Rate 19 20 Blood Pressure 121/56 O2 Sat by Pulse Oximetry 97 97 Oxygen Delivery Method Oxygen Flow Rate FIO2% 06/02/22 08:00 06/02/22 08:00 06/02/22 09:00 Temperature Pulse Rate 67 Respiratory Rate 17 Blood Pressure 114/56 131/58 O2 Sat by Pulse Oximetry 99 Oxygen Delivery Method Oxygen Flow Rate FIO2% 06/02/22 09:00 06/02/22 10:00 06/02/22 10:00 Temperature Pulse Rate 66 68 Respiratory Rate 18 20 Blood Pressure 126/60 O2 Sat by Pulse Oximetry 99 100 Oxygen Delivery Method Oxygen Flow Rate FIO2% 06/02/22 12:33 06/02/22 11:00 06/02/22 11:01 Temperature Pulse Rate 76 Respiratory Rate 21 Blood Pressure 130/67 154/63 O2 Sat by Pulse Oximetry 96 Oxygen Delivery Method Oxygen Flow Rate FIO2% 06/02/22 11:01 06/02/22 12:00 06/02/22 12:00 Temperature Pulse Rate 74 72 Respiratory Rate 19 20 Blood Pressure 132/63 O2 Sat by Pulse Oximetry 96 96 Oxygen Delivery Method Oxygen Flow Rate FIO2% 06/02/22 13:32 06/02/22 13:00 06/02/22 13:00 Temperature Pulse Rate 74 Respiratory Rate 19 22 Blood Pressure 133/60 O2 Sat by Pulse Oximetry 99 Oxygen Delivery Method Oxygen Flow Rate FIO2% 06/02/22 14:00 06/02/22 14:00 06/02/22 15:00 Temperature Pulse Rate 70 Respiratory Rate 17 Blood Pressure 127/60 120/57 O2 Sat by Pulse Oximetry 98 Oxygen Delivery Method Oxygen Flow Rate FIO2% 06/02/22 15:00 06/02/22 16:00 06/02/22 16:00 Temperature Pulse Rate 67 69 Respiratory Rate 18 21 Blood Pressure 136/63 O2 Sat by Pulse Oximetry 98 100 Oxygen Delivery Method Oxygen Flow Rate FIO2% 06/02/22 14:32 06/02/22 17:00 06/02/22 17:00 Temperature Pulse Rate 69 Respiratory Rate 19 18 Blood Pressure 130/60 O2 Sat by Pulse Oximetry 97 Oxygen Delivery Method Oxygen Flow Rate FIO2% 06/02/22 18:00 06/02/22 18:00 06/02/22 19:00 Temperature Pulse Rate 72 72 Respiratory Rate 20 20 Blood Pressure 131/62 131/62 O2 Sat by Pulse Oximetry 99 99 Oxygen Delivery Method Nasal Cannula Oxygen Flow Rate 2 FIO2% 06/02/22 19:00 06/02/22 20:00 06/02/22 21:20 Temperature 98.3 F Pulse Rate 72 Respiratory Rate 21 19 Blood Pressure 135/63 O2 Sat by Pulse Oximetry 100 Oxygen Delivery Method Nasal Cannula Nasal Cannula Oxygen Flow Rate 2 2 FIO2% 06/02/22 22:20 06/02/22 21:00 06/02/22 22:00 Temperature Pulse Rate 72 73 Respiratory Rate 20 21 21 Blood Pressure 141/65 128/60 O2 Sat by Pulse Oximetry 97 96 Oxygen Delivery Method Nasal Cannula Nasal Cannula Oxygen Flow Rate 2 2 FIO2% 06/02/22 23:00 06/03/22 00:00 06/02/22 21:09 Temperature 98.8 F Pulse Rate 74 71 Respiratory Rate 17 18 Blood Pressure 116/59 118/59 O2 Sat by Pulse Oximetry 98 100 Oxygen Delivery Method Nasal Cannula Nasal Cannula Nasal Cannula Oxygen Flow Rate 2 2 2 FIO2% 28 06/03/22 01:00 06/03/22 02:00 06/03/22 03:00 Temperature Pulse Rate 67 74 103 H Respiratory Rate 17 18 22 Blood Pressure 110/53 104/54 125/68 O2 Sat by Pulse Oximetry 99 100 100 Oxygen Delivery Method Nasal Cannula Nasal Cannula Nasal Cannula Oxygen Flow Rate 2 2 2 FIO2% 06/03/22 04:00 06/03/22 05:00 06/03/22 06:00 Temperature 98.4 F Pulse Rate 68 73 76 Respiratory Rate 17 18 16 Blood Pressure 133/61 149/63 151/74 O2 Sat by Pulse Oximetry 100 99 100 Oxygen Delivery Method Nasal Cannula Nasal Cannula Nasal Cannula Oxygen Flow Rate 2 2 2 FIO2% 06/03/22 07:00 06/03/22 07:18 06/02/22 19:00 Temperature Pulse Rate 76 Respiratory Rate Blood Pressure 142/66 O2 Sat by Pulse Oximetry Oxygen Delivery Method Nasal Cannula Oxygen Flow Rate 2 FIO2% 06/02/22 19:00 06/02/22 20:00 06/02/22 20:00 Temperature Pulse Rate 74 72 Respiratory Rate 19 21 Blood Pressure 135/63 O2 Sat by Pulse Oximetry 100 97 Oxygen Delivery Method Oxygen Flow Rate FIO2% 06/02/22 21:00 06/02/22 21:00 06/02/22 22:00 Temperature Pulse Rate 74 Respiratory Rate 22 Blood Pressure 141/65 128/60 O2 Sat by Pulse Oximetry 96 Oxygen Delivery Method Oxygen Flow Rate FIO2% 06/02/22 22:00 06/02/22 23:00 06/02/22 23:00 Temperature Pulse Rate 73 77 Respiratory Rate 21 21 Blood Pressure 116/59 O2 Sat by Pulse Oximetry 96 98 Oxygen Delivery Method Oxygen Flow Rate FIO2% 06/03/22 00:00 06/03/22 00:00 06/03/22 01:00 Temperature Pulse Rate 73 Respiratory Rate 16 Blood Pressure 118/59 110/53 O2 Sat by Pulse Oximetry 99 Oxygen Delivery Method Oxygen Flow Rate FIO2% 06/03/22 01:00 06/03/22 02:00 06/03/22 02:00 Temperature Pulse Rate 70 62 Respiratory Rate 21 23 Blood Pressure 104/54 O2 Sat by Pulse Oximetry 96 100 Oxygen Delivery Method Oxygen Flow Rate FIO2% 06/03/22 03:00 06/03/22 03:01 06/03/22 03:01 Temperature Pulse Rate 65 65 Respiratory Rate 16 17 Blood Pressure 127/61 O2 Sat by Pulse Oximetry 100 100 Oxygen Delivery Method Oxygen Flow Rate FIO2% 06/03/22 04:00 06/03/22 04:00 06/03/22 05:00 Temperature Pulse Rate 66 Respiratory Rate 17 Blood Pressure 133/61 149/63 O2 Sat by Pulse Oximetry 100 Oxygen Delivery Method Oxygen Flow Rate FIO2% 06/03/22 05:00 06/03/22 06:00 06/03/22 06:00 Temperature Pulse Rate 67 79 Respiratory Rate 17 23 Blood Pressure 151/74 O2 Sat by Pulse Oximetry 100 100 Oxygen Delivery Method Oxygen Flow Rate FIO2% 06/03/22 07:00 06/03/22 07:00 06/03/22 08:40 Temperature 98.6 F Pulse Rate 78 Respiratory Rate 20 Blood Pressure 149/67 O2 Sat by Pulse Oximetry 99 Oxygen Delivery Method Nasal Cannula Oxygen Flow Rate 2 FIO2% 28 06/03/22 08:00 06/03/22 08:00 06/03/22 09:00 Temperature Pulse Rate 73 71 Respiratory Rate 21 18 Blood Pressure 114/56 O2 Sat by Pulse Oximetry 96 100 Oxygen Delivery Method Oxygen Flow Rate FIO2% 06/03/22 09:01 06/03/22 09:01 06/03/22 10:00 Temperature Pulse Rate 73 Respiratory Rate 18 Blood Pressure 138/65 125/61 O2 Sat by Pulse Oximetry 100 Oxygen Delivery Method Oxygen Flow Rate FIO2% 06/03/22 10:00 Temperature Pulse Rate 67 Respiratory Rate 20 Blood Pressure O2 Sat by Pulse Oximetry 100 Oxygen Delivery Method Oxygen Flow Rate FIO2% Labs: Laboratory Last Values WBC 11.5 X10^3/uL (3.6-10.0) H 06/03/22 04:25 RBC 3.52 X10^6/uL (4.7-6.0) L 06/03/22 04:25 Hgb 8.5 g/dL (13.5-18.0) L 06/03/22 04:25 Hct 26.2 % (42.0-54.0) L 06/03/22 04:25 MCV 74.5 fL (80.0-100.0) L 06/03/22 04:25 MCH 24.1 pg (27.0-34.0) L 06/03/22 04:25 MCHC 32.4 g/dL (33.0-35.0) L 06/03/22 04:25 RDW 16.3 % (11.6-16.5) 06/03/22 04:25 Plt Count 754 X10^3/uL (150.0-450.0) H 06/03/22 04:25 Plt Count Comment Increased (ADEQUATE) 06/03/22 04:25 MPV 7.7 fL (7.4-11.0) 06/03/22 04:25 Neut % (Auto) 69.6 % (42.0-75.0) 06/03/22 04:25 Lymph % (Auto) 21.6 % (21.0-51.0) 06/03/22 04:25 Todd % (Auto) 6.0 % (0.0-13.0) 06/03/22 04:25 Eos % (Auto) 2.2 % (0.9-2.9) 06/03/22 04:25 Baso % (Auto) 0.6 % (0.2-1.0) 06/03/22 04:25 Neut # (Auto) 8.0 x10^3/uL (2.2-4.8) H 06/03/22 04:25 Lymph # (Auto) 2.5 X10^3/uL (1.3-2.9) 06/03/22 04:25 Todd # (Auto) 0.7 x10^3/uL (0.3-0.8) 06/03/22 04:25 Eos # (Auto) 0.3 x10^3/uL (0.0-0.2) H 06/03/22 04:25 Baso # (Auto) 0.1 X10^3/uL (0.0-0.1) 06/03/22 04:25 Absolute Nucleated RBC 0.0 /100WBC 06/03/22 04:25 Plt Morphology Comment Normal (NORMAL) 06/03/22 04:25 RBC Morphology Abnormal (NORMAL) 06/03/22 04:25 Hypochromasia 1+ A 06/03/22 04:25 Microcytosis Slight A 06/03/22 04:25 Sodium 137 mmol/L (136-145) 06/03/22 04:25 Corrected Sodium 138 mmol/L (136-145) 06/03/22 04:25 Potassium 3.6 mmol/L (3.5-5.1) 06/03/22 04:25 Chloride 99 mmol/L (98-107) 06/03/22 04:25 Carbon Dioxide 30.7 mmol/L (21-32) 06/03/22 04:25 BUN 8 mg/dL (7-18) 06/03/22 04:25 Creatinine 0.40 mg/dL (0.70-1.30) L 06/03/22 04:25 Est GFR (MDRD) Af Amer > 60 (>60) 06/03/22 04:25 Est GFR (MDRD) Non-Af > 60 (>60) 06/03/22 04:25 Glucose 160 mg/dL (65-99) H 06/03/22 04:25 POC Glucose (mg/dL) 161 mg/dL (65-99) H 06/03/22 05:01 Calcium 8.6 mg/dL (8.5-10.1) 06/03/22 04:25 Corrected Calcium 10.8 mg/dL (8.5-10.1) H 05/28/22 20:18 Magnesium 1.8 mg/dL (2.0-2.9) L 05/31/22 04:30 Total Bilirubin 0.30 mg/dL (0.2-1.0) 05/28/22 20:18 AST 96 Units/L (15-37) H 05/28/22 20:18 ALT 158 Units/L (12-78) H 05/28/22 20:18 Alkaline Phosphatase 368 Units/L (46-116) H 05/28/22 20:18 Total Protein 8.0 g/dL (6.4-8.2) 05/28/22 20:18 Albumin 1.8 g/dL (3.4-5.0) L 05/28/22 20:18 Globulin 6.2 g/dL (2.5-4.5) H 05/28/22 20:18 Albumin/Globulin Ratio 0.3 Ratio (1.1-2.1) L 05/28/22 20:18 Specimen Type Catherized urine 05/29/22 11:10 Urine Color Yellow (YELLOW) 05/29/22 11:10 Urine Appearance Clear (CLEAR) 05/29/22 11:10 Urine pH 7.0 (5.0 - 8.0) 05/29/22 11:10 Ur Specific Dewey 1.015 (1.000-1.030) 05/29/22 11:10 Urine Protein 2+ (NEGATIVE) 05/29/22 11:10 Urine Glucose (UA) 3+ (NEGATIVE) 05/29/22 11:10 Urine Ketones Negative (NEGATIVE) 05/29/22 11:10 Urine Blood Negative (NEGATIVE) 05/29/22 11:10 Urine Nitrite Negative (NEGATIVE) 05/29/22 11:10 Urine Bilirubin Negative (NEGATIVE) 05/29/22 11:10 Urine Urobilinogen 1+ (NORMAL) 05/29/22 11:10 Ur Leukocyte Esterase Negative (NEGATIVE) 05/29/22 11:10 Urine RBC 0-2 /HPF (0-3) 05/29/22 11:10 Urine WBC None seen /HPF (0-5) 05/29/22 11:10 Ur Squamous Epith Cells Rare /HPF (NEGATIVE) 05/29/22 11:10 Urine Bacteria Trace /HPF (NEGATIVE) 05/29/22 11:10 Ur Culture Indicated? No/not indicated 05/29/22 11:10 Reason For Visit: UNSTAGABLE DECUBITUS RIGHT HEEL Discharge Date Discharge Date: 06/03/22 Discharge Diagnosis All Active Problems (Updated 05/28/22 @ 22:58 by Cristóbal Hammer) Peripheral vascular disease (Acute) Hypertension (Acute) Diabetes (Acute) History of CVA (cerebrovascular accident) (Acute) Ischemia of right lower extremity (Acute) Arachnoid cyst (Acute) Plan of Treatment: Continue with present treatment and follow up plan. Pt is to keep follow up appointment as instructed and take medications as ordered. Discharge Medications Discharge Medications: morphine Allergy (Verified 05/29/22 13:09) CONTINUE taking the following medications collagenase clostridium histo. 250 unit/gram topical ointment (Santyl) 1 applic topical QDAY 05/28/22 [History] levofloxacin 500 mg tablet 1 tab PO QDAY 05/28/22 [History] oxycodone-acetaminophen 5 mg-325 mg tablet 1 tab PO QID PRN 05/28/22 [History] potassium chloride 20 mEq/15 mL oral liquid 2.5 ml PO BID 05/28/22 [History] rosuvastatin 20 mg tablet 1 tab PO QPM 05/28/22 [History] sertraline 50 mg tablet 1 tab PO QDAY 05/28/22 [History] aspirin 81 mg capsule 81 mg PO QDAY 05/29/22 [History] Discharge Disposition Assessment: see hospital course Discharge Plan Discharge Plan Hospital Course: 66 year old male with significant history of peripheral vascular disease and multiple strokes now completely aphasic but is alert with severe wounds of the right leg which to this point he had refused amputation and they continue to worsen and he is non ambulatory with contractions of both lowre extremities. He and his family changed their minds and he was admitted 05/29/2022 and had right above knee amputation on 05/30/2022. He has remained stable. He was treated empirically wt IV antibiotics. He will be discharged home today with home health and will follow up with me in the office in one week. Patient Disposition: HOME HEALTH SERVICE Condition: Stable Health Concerns: Post Hospitalization: new medications and changes needed to prevent readmission or further decline. Pt educated and given instructions on all concerns. Care Plan Goals: Problem: Pain/Alteration in Comfort Goal: Improve/ Resolve Pain; Achieve Pain Tolerance Instructions: Take pain medications as prescribed. Contact your primary care provider if your pain is unrelieved or worsens. Follow up with primary care provider as directed. Plan of Treatment: Continue with present treatment and follow up plan. Pt is to keep follow up appointment as instructed and take medications as ordered. Assessment: see hospital course Prescriptions: New oxycodone-acetaminophen [Percocet] 5-325 mg tablet 1 tab PO Q6H MDD 4 PRNQty: 30 0RF Continued potassium chloride 20 mEq/15 mL liquid 2.5 ml PO BID oxycodone-acetaminophen 5-325 mg tablet 1 tab PO QID PRN Santyl 250 unit/gram ointment 1 applic TOPICAL QDAY levofloxacin 500 mg tablet 1 tab PO QDAY sertraline 50 mg tablet 1 tab PO QDAY rosuvastatin 20 mg tablet 1 tab PO QPM aspirin 81 mg Capsule 81 mg PO QDAY Follow ups/Referrals Follow ups/Referrals: JAVAD MONTERO [STAFF PHYSICIAN] - CHRISTINE COOK [REFERRING] - 06/14/22 12:30 pm Cristóbal Hammer [STAFF PHYSICIAN] - 06/12/22 11:30 am Instructions Instructions: Stump and Prosthesis Care, Living With an Amputation, Phantom Limb Pain, Leg Amputation, Care After
== END 2022-06-03 14:48 | disposition home health service (06) | DRG 240 ==
LOC: ICU 17:38
PROVIDERS: ADMIT Surgery; ATTEND Surgery
DX: Z86.73 Personal history of transient ischemic attack (TIA), and cerebral infarction without residual deficits; Z93.1 Gastrostomy status; I10 Essential (primary) hypertension; L89.610 Pressure ulcer of right heel, unstageable; E11.65 Type 2 diabetes mellitus with hyperglycemia; I96 Gangrene, not elsewhere classified; I70.221 Atherosclerosis of native arteries of extremities with rest pain, right leg; R06.02 Shortness of breath